=== PATIENT | female | born 2000 | race Caucasian/White ===

== ENCOUNTER → 2022-01-20 | Outpatient (CLI) | payer OTHER ==
--- NOTE | 2022-01-20 20:05 | RAD ---
EXAM: PA view right hand. 2 views right thumb DATE: 01/20/2022 7:18 PM INDICATION: Reason: Right thumb injury, pain with swelling, unable to bend / Spl. Instructions: / Az story: . COMPARISON: No Prior FINDINGS/ IMPRESSION: Soft tissue swelling about the right thumb. No acute fracture or dislocation. Electronically signed by: Charlie Harvey MD (01/20/2022 8:03 PM) ELIJAH
== END ==
LOC: RAD 19:06
PROVIDERS: ATTEND Physician Assistant Medical
DX: S69.91XA Unspecified injury of right wrist, hand and finger(s), initial encounter (principal); M79.89 Other specified soft tissue disorders; X58.XXXA Exposure to other specified factors, initial encounter; Y93.89 Activity, other specified; Y92.89 Other specified places as the place of occurrence of the external cause; Y99.8 Other external cause status
CPT/HCPCS: 73140